=== PATIENT | female | born 1980 ===

== ENCOUNTER → 2020-07-17 11:33 | Outpatient (ROUT) | payer OTHER, SELFPAY ==
[2020-07-17 11:56] LABS: COVID19 -Nasal RAPID Negative (Negative)
== END ==
PROVIDERS: Visit Provider Family Medicine
DX: Z01.812 Encounter for preprocedural laboratory examination (principal); Z20.828 Contact with and (suspected) exposure to other viral communicable diseases
CPT/HCPCS: 87635